=== PATIENT | female | born 1990 | race Asian ===

== ENCOUNTER 2019-01-27 07:49 | Emergency (ER) | payer MEDICAID ==
[~2019-01-27] VITALS: Ht 160 cm; Wt 52.2 kg
[2019-01-27 07:53] VITALS: Ht 160 cm; Wt 52.2 kg
[2019-01-27 08:36] LABS: PLATELET COUNT 183 x10^3mcL (130-400); RED CELL DISTRIBUTION WIDTH 11.9 % (11.5-14.5)
[2019-01-27 08:40] LABS: CALCIUM 9.1 mg/dL (8.5-10.1); CARBON DIOXIDE 27.3 mmol/L (21-32); CHLORIDE SERUM 103 mmol/L (98-107); CREATININE SERUM 0.8 mg/dL (0.6-1.0); GFR1 > 60 mL/min; GLUCOSE SERUM 124 mg/dL (74-106); POTASSIUM SERUM 3.3 mmol/L (3.5-5.1); SODIUM SERUM 141 mmol/L (136-145)
[2019-01-27 08:45] LABS: ALBUMIN 4.9 g/dL (3.4-5.0); ALKALINE PHOSPHATASE 81 U/L (46-116); ALT/SGPT 24 U/L (14-59); AST/SGOT 15 U/L (15-37); BILIRUBIN TOTAL 0.8 mg/dL (0.20-1.00); LIPASE 64 IU/L (73-393); TOTAL PROTEIN, SERUM 7.9 g/dL (6.4-8.2)
[2019-01-27 11:43] VITALS: BP 121/79
== END 2019-01-27 11:43 | disposition home or self-care (01) ==
LOC: ED 07:49
PROVIDERS: Emergency Medicine
DX: N13.2 Hydronephrosis with renal and ureteral calculous obstruction (principal)
CPT/HCPCS: J1885; J2270; J2405; J7030

== ENCOUNTER 2019-07-01 20:48 | Emergency (ER) | payer OTHER ==
[~2019-07-01] VITALS: Ht 160 cm; Wt 49.9 kg
[2019-07-01 20:51] VITALS: Ht 160 cm; Wt 49.9 kg
[2019-07-01 21:54] LABS: BASOPHIL % 0.7 % (0-2); PLATELET COUNT 153 x10^3mcL (130-400); RED CELL DISTRIBUTION WIDTH 11.9 % (11.5-14.5)
[2019-07-01 22:08] LABS: UA SPECIFIC GRAVITY 1.015 (1.005-1.035); microscopic required? YES; urine erythrocyte 3+ (NEGATIVE)
[2019-07-01 23:14] VITALS: BP 111/62
== END 2019-07-01 23:14 | disposition home or self-care (01) ==
LOC: ED 20:48
PROVIDERS: Emergency Medicine
DX: O20.0 Threatened abortion (principal)
CPT/HCPCS: 36415

== ENCOUNTER 2020-07-09 05:55 | Emergency (ER) | payer OTHER ==
[~2020-07-09] VITALS: Ht 160 cm; Wt 52.8 kg
[2020-07-09 05:59] VITALS: Ht 160 cm; Wt 52.8 kg
[2020-07-09 10:02] VITALS: BP 110/64
== END 2020-07-09 10:02 | disposition home or self-care (01) ==
LOC: ED 05:55
DX: K21.9 Gastro-esophageal reflux disease without esophagitis (principal)
CPT/HCPCS: Q0092